=== PATIENT | female | born 1980 | race Caucasian/White ===

== ENCOUNTER 2018-12-14 05:52 | Outpatient (CLI) | payer MEDICAID ==
[~2018-12-14] VITALS: Ht 170.2 cm; Wt 97.5 kg
[~2018-12-14 05:52] MED LIST: ACHD5005 PO; DICY10CA26 PO; LAMO200T14 PO; LANS30CA PO; METO10TA3 PO; MMT17NA NS; ONDA8TAB13 PO; SUMA100T2 PO; TPR100T PO
[2018-12-14] MEDS ORDERED: CETI10TA17 PO (13:45)
[2018-12-14] MEDS ORDERED: CARI3CAP PO (13:45)
[2018-12-14] MEDS ORDERED: VORT10TA PO (13:45)
[2018-12-14] MEDS ORDERED: PHEN100C4 PO (13:45)
[2018-12-14] MEDS ORDERED: LAMO200T3 PO (13:45)
[2018-12-14] MEDS ORDERED: LAMO25TA75 PO (13:45)
[2018-12-14] MEDS ORDERED: PROP40TA5 PO (13:45)
[2018-12-14] MEDS ORDERED: PANT40TA2 PO (13:45)
== END 2018-12-14 14:06 ==
LOC: PREOP 05:52
PROVIDERS: ATTEND Surgery
DX: Z01.818 Encounter for other preprocedural examination (principal); K21.9 Gastro-esophageal reflux disease without esophagitis; R11.2 Nausea with vomiting, unspecified

== ENCOUNTER 2018-12-20 09:46 | Day surgery (SDC) | payer MEDICAID ==
[~2018-12-20] VITALS: Ht 170.2 cm; Wt 124.7 kg
[2018-12-20] VITALS (7 sets, daily range): BP systolic 108–135; BP diastolic 61–72
[~2018-12-20 09:46] MED LIST changes: +CARI3CAP PO; +CETI10TA17 PO; +LACTATED RINGERS 1,000 ML IV ONE; +LAMO200T3 PO; +LAMO25TA75 PO; +PANT40TA2 PO; +PHEN100C4 PO; +PROP40TA5 PO; +VORT10TA PO
--- NOTE | 2018-12-20 09:58 | Progress Note-Pre Operative ---
Pre-Operative Progress Note H&P Reviewed The H&P was reviewed, patient examined and no changes noted. Time Seen by Provider: 09:55 Date H&P Reviewed: Dec 20, 2018 Time H&P Reviewed: 09:56 Pre-Operative Diagnosis: Chronic Gastritis BARTOLOME DRAPER DO Dec 20, 2018 09:58
[2018-12-20] MEDS ORDERED: LACTATED RINGERS 1,000 ML IV STA (10:21)
[2018-12-20] MEDS ORDERED: HURRICAINE EXT TUBE (BENZOCAINE) XX PRN (10:30)
[2018-12-20] MEDS ORDERED: HURRICAINE EXT TUBE (BENZOCAINE) ONE (10:36)
[2018-12-20] MEDS ORDERED: MIDAZOLAM 2 MG/2 ML (VERSED) VIAL ONE (10:47)
[2018-12-20] MEDS ORDERED: PROPOFOL INJECTION 50 ML IV ONE (10:47)
--- NOTE | 2018-12-20 11:12 | Progress Note-Post Operative ---
Post-Operative Progess Note Surgeon (s)/Medication Technician (s) Surgeon BARTOLOME DRAPER DO Medication Technician: none Pre-Operative Diagnosis Chronic Gastritis Post-Operative Diagnosis Gastritis Hiatal Hernia Procedure & Operative Findings Date of Procedure 12/20/18 Procedure Performed/Findings EGD with bx Anesthesia Type IV sedation by THAI MASSEUR Estimated Blood Loss Estimated blood loss (mL): scant Specimens/Packing Specimens Removed antral bx body of stomach bx GE jxn bx BARTOLOME DRAPER DO Dec 20, 2018 11:12
--- NOTE | 2018-12-20 11:14 | Endoscopy Discharge Instruct ---
Endo Procedure/Findings Findings 1.: Gastritis 2.: Hiatal Hernia Discharge Instructions - Activity: You might feel a little sleepy until tomorrow. This is due to the medicine you received to relax you. Until tomorrow, you should: NOT drive a car, operate machinery or power tools. NOT drink any alcoholic beverages. NOT make any important decisions or sign importortant papers. Do not return to work until tomorrow, unless otherwise instructed. Resume previous activities tomorrow. Diet: Start by taking liquids. If you tolerate liquids, advance to solid food. make an appointment for one week 1.: EGD in 1 year Notify Physician - If you experience excessive bleeding, unusual abdominal pain, fever, or chest pain, contact your doctor immediately. BARTOLOME DRAPER DO Dec 20, 2018 11:14
--- NOTE | 2018-12-20 14:27 | Anesthesia-General Post-Op ---
MAC Patient Condition Mental Status/LOC: Same as Preop Cardiovascular: Satisfactory Nausea/Vomiting: Absent Respiratory: Satisfactory Pain: Controlled Complications: Absent Post Op Complications Complications None Follow Up Care/Instructions Patient Instructions None needed. Anesthesiology Discharge Order Discharge Order Patient is doing well, no complaints, stable vital signs, no apparent adverse anesthesia problems. No complications reported per nursing. AUGUSTO ROMAN CRNA Dec 20, 2018 14:27
--- NOTE | 2018-12-21 17:17 | OPERATIVE REPORT ---
DATE OF SERVICE: 12/20/2018 PREOPERATIVE DIAGNOSES: Chronic gastritis, nausea, vomiting. POSTOPERATIVE DIAGNOSES: Gastritis, hiatal hernia. PROCEDURE PERFORMED: Esophagogastroduodenoscopy with biopsy. SURGEON: Lemuel Hilliard DO. TAX SERVICES INTERN: None. ANESTHESIA: IV sedation by the SPINNER OPEN END. SPECIMEN: Biopsy from the antrum, biopsy of the body of the stomach and biopsy from the GE junction. BLOOD LOSS: Scant. FLUIDS: Per Anesthesia. POSTOPERATIVE CONDITION: Stable. INDICATION FOR PROCEDURE: The patient is a 38-year-old female who has been having some chronic gastritis as well as nausea, vomiting and needed a workup. FINDINGS: The patient had gastritis, hiatal hernia, possibly esophagitis and had biopsies performed. PROCEDURE NOTE: After informed consent was obtained, the patient was brought to the endoscopy suite, placed in the bed in left lateral decubitus position. She was administered IV sedation by the SPINNER OPEN END who then monitored her vitals the entire time, heart rate, blood pressure and pulse ox. A scope was inserted down the mouth through the esophagus and into the stomach, pushed towards the antrum, looked like some mild gastritis, took a picture of this, pushed into the duodenum, duodenum looked okay, took a picture and then pulled the scope back and did a biopsy of the antrum and then pulled the scope into the body of stomach, did another biopsy. I retroflexed the scope, saw hiatal hernia, took a picture of this and then pulled the scope up into the esophagus and the GE junction, looked like there was some creeping up of the Z line, took a picture of this and then did a biopsy of the GE junction. Suctioned the excess air out of the stomach and then pulled the scope up the esophagus and out the mouth. The patient tolerated the procedure. She was recovered in endoscopy suite. Job ID: [id number] DocumentID: [id number] Dictated Date: 12/21/2018 09:58:13 Chain Dyer Date: 12/21/2018 17:16:40 Dictated By: LEMUEL HILLIARD DO
== END 2018-12-20 12:15 | disposition home or self-care (01) ==
LOC: ENDO 09:46
PROVIDERS: ATTEND Surgery
DX: K29.50 Unspecified chronic gastritis without bleeding (principal); K44.9 Diaphragmatic hernia without obstruction or gangrene; F32.9 Major depressive disorder, single episode, unspecified; F41.9 Anxiety disorder, unspecified; F43.10 Post-traumatic stress disorder, unspecified; E66.01 Morbid (severe) obesity due to excess calories; Z68.41 Body mass index [BMI] 40.0-44.9, adult; Z90.89 Acquired absence of other organs; Z90.710 Acquired absence of both cervix and uterus; Z88.8 Allergy status to other drugs, medicaments and biological substances; Z90.49 Acquired absence of other specified parts of digestive tract; Z88.6 Allergy status to analgesic agent; Z79.84 Long term (current) use of oral hypoglycemic drugs

== ENCOUNTER 2019-07-09 21:49 | Emergency (ER) | payer MEDICAID ==
[~2019-07-09] VITALS: Ht 170 cm; Wt 117.0 kg
[~2019-07-09 21:49] MED LIST changes: -LACTATED RINGERS 1,000 ML IV ONE
--- OUTSIDE RECORDS SUMMARY | 2019-07-09 22:00 | XMS REPORT | Continuity of Care Document ---
Author Organization Unknown Address Unknown Phone Unavailable Allergies Active Description Code Type Severity Reaction Onset Reported/Identified Relationship to Patient Clinical Status Yes NO NAME AVAILABLE 01146 DRUG N/A N/A Yes Mobic 15 mg tablet Drug Allerg y N/A N/A 09/21/2012 Yes aspirin [id number] Drug Allergy Unknown N/A 07/30/2013 Yes METFORMIN 92475 DRUG INGREDI High Hives 09/01/2017 09/01/2017 Yes ONDANSETRON 83063 DRUG INGREDI N/A NTV 09/01/2017 09/01/2017 [address] CONTI INGREDI Low Rash 09/01/2017 09/01/2017 Yes aspirin [id number] Drug Allergy Severe HAS CONVULSIONS 12/14/2018 Yes ondansetron [id number] Drug Aller gy Mild HIVES 12/14/2018 Medications Medication Packaging Start Date St op Date Route Dosage Sig TRAZODONE HCL 100 MG PO TABS 09/01/2017 Oral 100 BEDTIME PRN OLANZAPINE 10 MG PO TBDP 09/01/2017 Oral 10 2 TI MES DAILY PRN OLANZAPINE 10 MG PO TABS 09/01/2017 Oral 10 2 TI MES DAILY PRN QUETIAPINE FUMARATE 25 MG PO TABS 09/01/2017 Oral 25 4 TIMES DAILY PRN MAGNESIUM HYDROXIDE 400 MG/5ML PO SUSP 09/01/2017 Oral 30 DAILY PRN ALUM T MAG HYDROXIDE-SIMETH 200-200-20 MG/5ML PO SUSP 09/01/2017 Oral 30 4 TIMES DAILY PRN ACETAMINOPHEN 325 MG PO TABS 09/01/2017 Oral 650 EVERY 6 HOURS PRN PROMETHAZINE HCL 25 MG PO TABS 09/01/2017 Oral 25 EVERY 6 HOURS PRN IBUPROFEN 400 MG PO TABS 09/01/2017 Oral 800 3 TI MES DAILY WITH MEALS POLYETHYLENE GLYCOL 3350 PO PACK 09/01/2017 Oral 17 DAILY ESTRADIOL 1 MG PO TABS 09/01/2017 Oral 2 GALILEA Y LAMOTRIGINE 100 MG PO TABS 09/01/2017 Oral 200 2 TIMES DAILY VENLAFAXINE HCL ER 75 MG PO CP24 09/01/2017 Oral 75 DAILY WITH BREAKFAST PROPRANOLOL HCL 40 MG PO TABS 09/01/2017 Oral 40 2 TIMES DAILY PHENYTOIN SODIUM EXTENDED 100 MG PO CAPS 09/01/2017 Oral 200 2 TIMES DAILY PANTOPRAZOLE SODIUM 40 MG PO TBEC 09/01/2017 Oral 40 EVERY MORNING BEFORE BREAKFAST GLUCAGON HCL (DIAGNOSTIC) 1 MG IJ SOLR 09/01/2017 Intramuscular 1 PRN GLUCOSE 40 % PO GEL 09/01/2017 Oral 15 PRN DEXTROSE 50 % IV SOLN 09/01/2017 Intravenous 50 PRN LIRAGLUTIDE 18 MG/3ML SC SOPN 09/01/2017 Subcutaneous 0.6 DAILY SITAGLIPTIN PHOSPHATE 50 MG PO TABS 09/01/2017 Oral 100 DAILY WITH BREAKFAST INSULIN ASPART 100 UNIT/ML SC SOPN 09/01/2017 Subcutaneous 4 TIMES DAILY BEFORE MEALS & NIGHTLY TRAZODONE HCL 100 MG PO TABS 09/01/2017 Oral 100 BEDTIME SITAGLIPTIN PHOSPHATE 50 MG PO TABS 09/02/2017 Oral 100 DAILY WITH BREAKFAST INSULIN DETEMIR 100 UNIT/ML SC SOPN 09/02/2017 Subcutaneous 10 EVERY MORNING IBUPROFEN 400 MG PO TABS 09/02/2017 Oral 800 EVER Y 6 HOURS PRN DAPAGLIFLOZIN PROPANEDIOL 5 MG PO SPLIT TA BLET 09/02/2017 Oral 5 DAILY INSULIN ASPART 100 UNIT/ML SC SOPN 09/02/2017 Subcutaneous 3 3 TIMES DAILY WITH MEALS INSULIN DETEMIR 100 UNIT/ML SC SOPN 09/03/2017 Subcutaneous 5 ONCE INSULIN ASPART 100 UNIT/ML SC SOPN 09/03/2017 Subcutaneous 5 3 TIMES DAILY WITH MEALS INSULIN DETEMIR 100 UNIT/ML SC SOPN 09/04/2017 Subcutaneous 15 EVERY MORNING Problems Date Dx Coded Attending Type Code Diagnosis Diagnosed By 08/25/2012 296.80 BIP OLAR DISORDER NOS 08/25/2012 724.2 lowe r back pain 08/25/2012 781.0 invo luntary movements [Sx] 08/25/2012 296.80 BIP OLAR DISORDER NOS 08/25/2012 724.2 lowe r back pain 08/25/2012 781.0 invo luntary movements [Sx] 08/25/2012 RAHUL MARIE MD 296.80 BIPOLAR DISORDER NOS 08/25/2012 RAHUL MARIE MD 724.2 lower back pain 08/25/2012 RAHUL MARIE MD 781.0 involuntary movements [Sx] 08/26/2012 268.9 GERMÁN MIN D DEFICIENCY 08/26/2012 272.1 HYPERTRIGLYCERIDEMIA 08/26/2012 268.9 GERMÁN MIN D DEFICIENCY 08/26/2012 272.1 HYPERTRIGLYCERIDEMIA 08/26/2012 RAHUL MARIE MD 268.9 VITAMIN D DEFICIENCY 08/26/2012 RAHUL MARIE MD 272.1 HYPERTRIGLYCERIDEMIA 09/21/2012 789.00 ABD OMINAL PAIN UNSPECIFIED SITE 09/21/2012 RAHUL MARIE MD 789.00 ABDOMINAL PAIN UNSPECIFIED SITE 10/29/2012 RAHUL MARIE MD 719.47 PAIN IN JOINT INVOLVING ANKLE AND FOOT 07/30/2013 SUGEY RICKS Ot 787.02 NAUSEA ALONE 07/30/2013 SUGEY RICKS Ot 789.00 ABDOMINAL PAIN, UNSPECIFIED SITE 09/04/2017 JOE DUARTE V [id number] Suicidal 09/04/2017 JOE DUARTE V E11.65 Type 2 diabetes mellitus with hyperglycemia (HCC) 09/04/2017 JOE DUARTE P F33.2 Major depressive disorder, recurrent severe without psychotic features (HCC) 09/04/2017 JOE DUARTE F E11.42 Type 2 diabetes mellitus with diabetic polyneuropathy (HCC) 09/04/2017 JOE DUARTE F E11.65 Type 2 diabetes mellitus with hyperglycemia (HCC) 09/04/2017 JOE DUARTE F E66.01 Morbid (severe) obesity due to excess calories (HCC) 09/04/2017 JOE DUARTE F E78.5 Hyperlipidemia, unspecified 09/04/2017 JOE DUARTE F F33.2 Major depressive disorder, recurrent severe without psychotic features (HCC) 09/04/2017 JOE DUARTE F F41.1 Generalized anxiety disorder 09/04/2017 JOE DUARTE F F43.10 Post-traumatic stress disorder, unspecified 09/04/2017 JOE DUARTE F G40.90 9 Epilepsy, unspecified, not intractable, without status epilepticus (HCC) 09/04/2017 JOE DUARTE G43.90 9 Migraine, unspecified, not intractable, without status migrainosus 09/04/2017 JOE DUARTE G47.00 Insomnia, unspecified 09/04/2017 JOE DUARTE F G47.33 Obstructive sleep apnea (adult) (pediatric) 09/04/2017 JOE DUARTE F G89.29 Other chronic pain 09/04/2017 JOE DUARTE K21.9 Gastro-esophageal reflux disease without esophagitis 09/04/2017 JOE DUARTE N32.81 Overactive bladder 09/04/2017 JOE DUARTE F R45.85 1 Suicidal ideations 09/04/2017 JOE DUARTE Z68.42 Body mass index (BMI) 45.0-49.9, adult (HCC) 09/04/2017 JOE DUARET 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 09/04/2017 JOE DUARTE Z90.49 Acquired absence of other specified parts of digestive tract 09/04/2017 JOE DUARTE Z90.71 0 Acquired absence of both cervix and uterus 12/14/2018 BARTOLOME DRAPER DO Ot K21.9 GASTRO-ESOPHAGEAL REFLUX DISEASE WITHOUT 12/14/2018 FAWAD DRAPER DOIC B Ot R11.2 NAUSEA WITH VOMITING, UNSPECIFIED 12/14/2018 BARTOLOME DRAPER DO B Ot Z01.8 18 ENCOUNTER FOR OTHER PREPROCEDURAL EXAMIN 12/20/2018 BARTOLOME DRAPER DO B Ot E66.0 1 MORBID (SEVERE) OBESITY DUE TO EXCESS CA 12/20/2018 BARTOLOME DRAPER DO B Ot F32.9 MAJOR DEPRESSIVE DISORDER, SINGLE EPISOD 12/20/2018 BARTOLOME DRAPER DO B Ot F41.9 ANXIETY DISORDER, UNSPECIFIED 12/20/2018 BARTOLOME DRAPER DO Ot F43.1 0 POST-TRAUMATIC STRESS DISORDER, UNSPECIF 12/20/2018 BARTOLOME DRAPER DO B Ot K29.5 0 UNSPECIFIED CHRONIC GASTRITIS WITHOUT BL 12/20/2018 BARTOLOME DRAPER DO Ot K44.9 DIAPHRAGMATIC HERNIA WITHOUT OBSTRUCTION 12/20/2018 DELMAN DO, BARTOLOME B Ot Z68.4 1 BODY MASS INDEX (BMI) 40.0-44.9, ADULT 12/20/2018 BARTOLOME DRAPER DO B Ot Z79.8 4 SHELTER (CURRENT) USE OF ORAL HYPOGLYC 12/20/2018 BARTOLOME DRAPER DO B Ot Z88.6 ALLERGY STATUS TO ANALGESIC AGENT STATUS 12/20/2018 BARTOLOME DRAPER DO B Ot Z88.8 ALLERGY STATUS TO OTH DRUG/MEDS/BIOL SUB 12/20/2018 BARTOLOME DRAPER DO B Ot Z90.4 9 ACQUIRED ABSENCE OF OTHER SPECIFIED PART 12/20/2018 BARTOLOME DRAPER DO B Ot Z90.7 10 ACQUIRED ABSENCE OF BOTH CERVIX AND UTER 12/20/2018 BARTOLOME DRAPER DO B Ot Z90.8 9 ACQUIRED ABSENCE OF OTHER ORGANS 12/24/2018 BARTOLOME DRAPER DO B Ot E66.0 1 MORBID (SEVERE) OBESITY DUE TO EXCESS CA 12/24/2018 BARTOLOME DRAPER DO B Ot F32.9 MAJOR DEPRESSIVE DISORDER, SINGLE EPISOD 12/24/2018 BARTOLOME DRAPER DO B Ot F41.9 ANXIETY DISORDER, UNSPECIFIED 12/24/2018 BARTOLOME DRAPER DO B Ot F43.1 0 POST-TRAUMATIC STRESS DISORDER, UNSPECIF 12/24/2018 BARTOLOME DRAPER DO B Ot K29.5 0 UNSPECIFIED CHRONIC GASTRITIS WITHOUT BL 12/24/2018 FAWAD DRAPER DOIC B Ot K44.9 DIAPHRAGMATIC HERNIA WITHOUT OBSTRUCTION 12/24/2018 BARTOLOME DRAPER DO B Ot Z68.4 1 BODY MASS INDEX (BMI) 40.0-44.9, ADULT 12/24/2018 BARTOLOME DRAPER DO B Ot Z79.8 4 SHELTER (CURRENT) USE OF ORAL HYPOGLYC 12/24/2018 BARTOLOME DRAPER DO B Ot Z88.6 ALLERGY STATUS TO ANALGESIC AGENT STATUS 12/24/2018 BARTOLOME DRAPER DO B Ot Z88.8 ALLERGY STATUS TO OTH DRUG/MEDS/BIOL SUB 12/24/2018 FAWAD DRAPER DOIC B Ot Z90.4 9 ACQUIRED ABSENCE OF OTHER SPECIFIED PART 12/24/2018 BARTOLOME DRAPER DO B Ot Z90.7 10 ACQUIRED ABSENCE OF BOTH CERVIX AND UTER 12/24/2018 BARTOLOME DRAPER DO B Ot Z90.8 9 ACQUIRED ABSENCE OF OTHER ORGANS Procedures Code Description [place] [address] ORIANA AGUILA VENIPUNCTURE 08/26/2012 35901 URIN E DRUG SCREEN (IN-HOUSE) 08/26/2012 83609 A1C (IN-HOUSE) 08/26/2012 23548 CBC 08/26/2012 47246 GERMÁN MIN D 25-HYDROXY (D2,D3, TOTAL) 08/26/2012 70396 LITHIUM 08/26/2012 58384 VIT B 12 08/26/2012 15811 TSH 08/26/2012 05499 LIPI D PANEL 08/26/2012 87319 CMP 08/26/2012 1563254 GF R CALC (RESULT ONLY) 08/26/2012 KATERINE BISHOP 08/29/2012 Results Test Result Range [facility] - 12/30/16 10:41 Glucose, Serum 140 mg/dL 65-99 BUN 14 mg/dL 6-20 Creatinine, Serum 0.61 mg/dL 0.57-1.00 eGFR If NonAfricn Am 116 mL/min/1.73 >59 eGFR If Africn Am 134 mL/min/1.73 >5 9 BUN/Creatinine Ratio 23 9-23 Sodium, Serum 140 mmol/L 134-144 Potassium, Serum 4.3 mmol/L 3.5-5.2 Chloride, Serum 98 mmol/L 96-106 Carbon Dioxide, Total 24 mmol/L 18-29 Calcium, Serum 9.4 mg/dL 8.7-10.2 Protein, Total, Serum 7.1 g/dL 6.0-8.5 Albumin, Serum 4.2 g/dL 3.5-5.5 Globulin, Total 2.9 g/dL 1.5-4.5 A/G Ratio 1.4 1.2-2.2 Bilirubin, Total 0.3 mg/dL 0.0-1.2 Alkaline Phosphatase, S 128 IU/L 39-117 AST (SGOT) 32 IU/L 0-40 ALT (SGPT) 26 IU/L 0-32 DILANTIN - 01/16/17 14:00 PHENYTOIN 7.6 mg/L 10.0-20.0 DILANTIN - 02/02/17 10:55 Phenytoin (Dilantin), Serum 5.9 ug/mL 10 .0-20.0 BASIC METABOLIC PANEL - 09/01/17 15:40 ANION GAP 7 BUN BLOOD 15 mg/dL 6-20 CALCIUM 9.8 mg/dL 8.7-10.5 CHLORIDE 105 mmol/L 99-111 CO2 28 mmol/L 20-36 CREATININE 0.67 mg/dL 0.40-1.10 EGFR > mL/min >59 GLUCOSE 178 mg/dL 74-106 POTASSIUM 4.5 mmol/L 3.6-4.9 SODIUM 140 mmol/L 136-145 HEMOGLOBIN A1C - 09/01/17 15:40 HEMOGLOBIN A1C 6.9 % <5.7 PERFORM POINT OF CARE GLUCOSE - 09/01/17 17:53 BEDSIDE GLUCOSE 171 mg/dL 74-106 PERFORM POINT OF CARE GLUCOSE - 09/01/17 20:49 BEDSIDE GLUCOSE 168 mg/dL 74-106 PERFORM POINT OF CARE GLUCOSE - 09/02/17 08:19 BEDSIDE GLUCOSE 177 mg/dL 74-106 PERFORM POINT OF CARE GLUCOSE - 09/02/17 12:22 BEDSIDE GLUCOSE 164 mg/dL 74-106 PERFORM POINT OF CARE GLUCOSE - 09/02/17 17:58 BEDSIDE GLUCOSE 155 mg/dL 74-106 PERFORM POINT OF CARE GLUCOSE - 09/02/17 20:53 BEDSIDE GLUCOSE 162 mg/dL 74-106 PERFORM POINT OF CARE GLUCOSE - 09/03/17 07:59 BEDSIDE GLUCOSE 147 mg/dL 74-106 PERFORM POINT OF CARE GLUCOSE - 09/03/17 12:18 BEDSIDE GLUCOSE 119 mg/dL 74-106 PERFORM POINT OF CARE GLUCOSE - 09/03/17 17:38 BEDSIDE GLUCOSE 170 mg/dL 74-106 PERFORM POINT OF CARE GLUCOSE - 09/03/17 20:50 BEDSIDE GLUCOSE 128 mg/dL 74-106 PERFORM POINT OF CARE GLUCOSE - 09/04/17 07:57 BEDSIDE GLUCOSE 148 mg/dL 74-106 CULTURE, URINE - 10/01/17 10:12 CULTURE, URINE, ROUTINE SEE NOTE NRG LIPID PANEL - 03/15/18 11:54 CHOLESTEROL, TOTAL 268 mg/dL <200 HDL CHOLESTEROL 44 mg/dL >50 TRIGLYCERIDES 353 mg/dL <150 LDL-CHOLESTEROL 164 mg/dL (calc) NRG CHOL/HDLC RATIO 6.1 (calc) <5.0 NON HDL CHOLESTEROL 224 mg/dL (calc) <13 0 VITAMIN B12/FOLATE, SERUM PANEL - 11:05 VITAMIN B12 380 pg/mL 200-1100 FOLATE, SERUM 7.6 ng/mL NRG LAMOTRIGINE (LAMICTAL), SERUM - 06/02/18 11:05 LAMOTRIGINE 1.0 mcg/mL 4.0-18.0 DILANTIN - 08/10/18 12:15 PHENYTOIN 18.2 mg/L 10.0-20.0 LAMOTRIGINE (LAMICTAL), SERUM - 08/10/18 12:15 LAMOTRIGINE 3.4 mcg/mL 4.0-18.0 CMP - 09/28/18 14:22 GLUCOSE 119 mg/dL 65-139 UREA NITROGEN (BUN) 15 mg/dL 7-25 CREATININE 0.66 mg/dL 0.50-1.10 eGFR NON-AFR. COLOMBIAN 111 mL/min/1.73m2 > OR = 60 eGFR 129 mL/min/1.73m2 > OR = 60 BUN/CREATININE RATIO NOT APPLICABLE (calc) 6-22 SODIUM 142 mmol/L 135-146 POTASSIUM 4.4 mmol/L 3.5-5.3 CHLORIDE 101 mmol/L 98-110 CARBON DIOXIDE 29 mmol/L 20-32 CALCIUM 9.8 mg/dL 8.6-10.2 PROTEIN, TOTAL 7.2 g/dL 6.1-8.1 ALBUMIN 4.3 g/dL 3.6-5.1 GLOBULIN 2.9 g/dL (calc) 1.9-3.7 ALBUMIN/GLOBULIN RATIO 1.5 (calc) 1.0-2. 5 BILIRUBIN, TOTAL 0.5 mg/dL 0.2-1.2 ALKALINE PHOSPHATASE 189 U/L 33-115 AST 22 U/L 10-30 ALT 30 U/L 6-29 DILANTIN - 09/28/18 14:22 PHENYTOIN 11.1 mg/L 10.0-20.0 LAMOTRIGINE (LAMICTAL), SERUM - 09/28/18 14:22 LAMOTRIGINE 3.1 mcg/mL 4.0-18.0 CULTURE, ANAEROBIC AND AEROBIC - 9 17:46 CULTURE, ANAEROBIC BACTERIA W/GRAM STAIN SEE NOTE NRG CULTURE, AEROBIC BACTERIA SEE NOTE NRG DILANTIN - 12/23/18 09:31 PHENYTOIN 12.1 mg/L 10.0-20.0 LAMOTRIGINE (LAMICTAL), SERUM - 12/23/18 09:31 LAMOTRIGINE 2.5 mcg/mL 4.0-18.0 CBC - 03/21/19 16:05 WHITE BLOOD CELL COUNT 9.5 Thousand/uL 3 .8-10.8 RED BLOOD CELL COUNT 4.13 Million/uL 3.8 0-5.10 HEMOGLOBIN 14.1 g/dL 11.7-15.5 HEMATOCRIT 38.8 % 35.0-45.0 MCV 93.9 fL 80.0-100.0 MCH 34.1 pg 27.0-33.0 MCHC 36.3 g/dL 32.0-36.0 RDW 12.0 % 11.0-15.0 PLATELET COUNT 286 Thousand/uL 140-400 MPV 10.0 fL 7.5-12.5 ABSOLUTE NEUTROPHILS 6166 cells/uL 1500- 7800 ABSOLUTE LYMPHOCYTES 2556 cells/uL 850-3 900 ABSOLUTE MONOCYTES 599 cells/uL 200-950 ABSOLUTE EOSINOPHILS 162 cells/uL 15-500 ABSOLUTE BASOPHILS 19 cells/uL 0-200 NEUTROPHILS 64.9 % NRG LYMPHOCYTES 26.9 % NRG MONOCYTES 6.3 % NRG EOSINOPHILS 1.7 % NRG BASOPHILS 0.2 % NRG ESR/SED RATE - 03/21/19 16:05 SED RATE BY MODIFIED WESTERGREN 51 mm/h < OR = 20 DILANTIN - 03/21/19 16:05 PHENYTOIN 12.2 mg/L 10.0-20.0 LAMOTRIGINE (LAMICTAL), SERUM - 03/21/19 16:06 LAMOTRIGINE 2.2 mcg/mL 4.0-18.0 DILANTIN - 06/23/19 17:10 PHENYTOIN 7.8 mg/L 10.0-20.0 LAMOTRIGINE (LAMICTAL), SERUM - 06/23/19 17:13 LAMOTRIGINE 3.4 mcg/mL 4.0-18.0 Encounters ACCT No. Visit Date/Time Discharge Status Pt. Type Provider Facility Loc./Unit Complaint [id number] 06/23/2019 15:40:00 06/23/2019 23:59:5 9 [id number] 06/23/2019 15:40:00 Document Registration [id number] 03/21/2019 14:20:00 Document Registration [id number] 12/23/2018 09:30:00 Document Registration [id number] 09/28/2018 17:46:00 Document Registration [id number] 09/28/2018 13:20:00 Document Registration [id number] 08/10/2018 11:20:00 Document Registration [id number] 06/02/2018 11:45:00 Document Registration [id number] 03/15/2018 11:40:00 Document Registration [id number] 10/01/2017 09:40:00 Document Registration [id number] 02/02/2017 10:40:00 Document Registration [id number] 01/16/2017 14:20:00 Document Registration [id number] 12/30/2016 09:20:00 Document Registration [id number] 10/29/2012 10:19:00 10/29/2012 23:59: 59 CLS Outpatient RAHUL MARIE MD [id number] 09/21/2012 16:18:00 Document Registration [id number] 08/26/2012 09:40:00 Document Registration [id number] 09/01/2017 10:46:00 8 11:28:00 DIS Inpatient [facility] [place] [facility]E [facility] [id number] 12/20/2018 09:46:00 12:15:00 DIS Outpatient BONNY GANDHI BARTOLOME B [facility] ENDO GERD/N V [id number] 12/14/2018 05:52:00 019 14:06:00 DIS Outpatient BONNY DO BARTOLOME B [facility] PREOP EGD [id number] 06/15/2018 13:43:00 019 23:59:59 CLS Preadmit RASHAAD FOLEY, ANASTASIYA Bess [facility] REHAB CERVICAL RADICULOPATHY [id number] 07/30/2013 13:24:00 014 17:10:00 DIS Emergency SUGEY RICKS [facility] ER OVERALL BODY PAIN [id number] 11/22/2012 11:33:00 013 23:59:59 CLS Outpatient [id number] 05/20/2018 13:43:00 Document Registration
[2019-07-09] MEDS ORDERED: CEPHALEXIN 250 MG (KEFLEX) CAP PO ONE ×2 (22:08→22:15)
[2019-07-09] MEDS ORDERED: CEPH500T PO (22:09)
--- NOTE | 2019-07-09 22:09 | ED Integumentary General ---
General Chief Complaint: Fever-Adult/Adol Stated Complaint: FEVER Nursing Triage Note: Pt presents with a fever and right side facial swelling Source: patient Exam Limitations: no limitations History of Present Illness Date Seen by Provider: Jul 09, 2019 Time Seen by Provider: 22:04 Initial Comments onset of facial swelling and redness beginning yesterday, significantly worse today. Left side of face. similar episode a few weeks ago on the right side of her face. Denies dental pain. Saw a dentist last week and told she did not have a dental problem. Allergies and Home Medications Allergies Coded Allergies: aspirin (Unverified Allergy, Severe, HAS CONVULSIONS, 12/14/18) ondansetron (Verified Allergy, Mild, HIVES, 12/14/18) Home Medications Cariprazine Hydrochloride 3 Mg Capsule, 3 MG PO DAILY, (Reported) Cetirizine HCl 10 Mg Tablet, 10 MG PO DAILY, (Reported) Lamotrigine 200 Mg Tab.er.24, 200 MG PO BID, (Reported) Lamotrigine 25 Mg Tablet, 25 MG PO DAILY, (Reported) Pantoprazole Sodium 40 Mg Tablet.dr, 40 MG PO DAILY, (Reported) Phenytoin Sodium Extended 100 Mg Capsule, 200 MG PO TID, (Reported) Propranolol HCl 40 Mg Tablet, 40 MG PO BID, (Reported) Vortioxetine Hydrobromide 10 Mg Tablet, 10 MG PO DAILY, (Reported) Patient Home Medication List Home Medication List Reviewed: Yes Review of Systems Review of Systems Constitutional: see HPI, fever; No malaise, No weakness EENTM: mouth pain, mouth swelling; No ear discharge, No hearing loss, No ear pain, No blurred vision, No double vision, No eye pain, No tearing, No dental problems, No hoarseness, No epistaxis, No nose congestion, No nose pain, No throat pain, No throat swelling Respiratory: No cough, No short of breath Cardiovascular: No chest pain, No palpitations Gastrointestinal: No abdominal pain, No loss of appetite, No nausea, No vomiting Skin: see HPI, change in color, rash (facial) Past Xuvomrg-Wgkltt-Xtnwjk Hx Past Med/Social Hx: Reviewed Nursing Past Med/Soc Hx Patient Social History Alcohol Use: Denies Use Recreational Drug Use: No Smoking Status: Never a Smoker 2nd Hand Smoke Exposure: No Recent Foreign Travel: No Contact w/Someone Who Travel: No Recent Infectious Disease Expo: No Recent Hopitalizations: No Physical Abuse: No Sexual Abuse: No Immunizations Up To Date Date of Influenza Vaccine: Jan 18, 2018 Seasonal Allergies Seasonal Allergies: Yes Past Medical History Surgeries: Yes Appendectomy, Gallbladder, Hysterectomy Respiratory: No Cardiac: No Neurological: Yes (09/2018 LAST SEIZURE) Headaches /Migraines, Seizure Disorder RUBY ON RAILS ENGINEER History: Hysterectomy Sexually Transmitted Disease: No HIV/AIDS: No Genitourinary: No Gastrointestinal: Yes (N/V) Gastroesophageal Reflux Musculoskeletal: Yes (SLIPPED DISC) Back Injury Endocrine: No HEENT: No Loss of Vision: Denies Hearing Impairment: Denies Cancer: No Psychosocial: Yes Anxiety, Depression Integumentary: No Blood Disorders: No Adverse Reaction/Blood Tranf: No (N/A) Physical Exam Vital Signs Vital Signs - First Documented 07/09/19 21:55 Temp 39.0 Pulse 125 Resp 18 B/P (MAP) 132/73 (92) Pulse Ox 95 O2 Delivery Room Air Capillary Refill : Less Than 3 Seconds General Appearance: WD/WN, no apparent distress HEENT: PERRL/EOMI, TMs normal, pharynx normal; No pharyngeal erythema, No tonsillar exudate Neck: non-tender, supple, normal inspection; No lymphadenopathy (R), No lymphadenopathy (L) Skin: other (moderate induration without abscess formation left maxillary region w intense erythema. Non-fluctuant or pointing. Normal oral exam without dental abscess. ) Progress/Results/Core Measures Results/Orders Vital Signs/I&O 07/09/19 21:55 Temp 39.0 Pulse 125 Resp 18 B/P (MAP) 132/73 (92) Pulse Ox 95 O2 Delivery Room Air Blood Pressure Mean: 92 Departure Impression Primary Impression: Facial cellulitis Disposition: 01 HOME, SELF-CARE Condition: Stable Departure-Patient Inst. Decision time for Depature: 22:09 Referrals: [facility] (PCP) Primary Care Physician KATERINE GRANADO APRN (Family) Primary Care Physician Patient Instructions: Cellulitis (Skin Infection), Adult (DC) Scripts Prednisone (Prednisone) 20 Mg Tab 40 MG PO DAILY, #10 TAB 0 Refills Prov: ROVENSTINE,LUCERO L DO 07/09/19 Cephalexin (Cephalexin) 500 Mg Tablet 500 MG PO QID, #40 TAB 0 Refills Prov: ROVENSTINE,LUCERO L DO 07/09/19 LUCERO CALVERT DO Jul 09, 2019 22:09
[2019-07-09] MEDS ORDERED: PRD20T PO (22:10)
[2019-07-09 22:16] VITALS: BP 132/73
== END 2019-07-09 22:17 | disposition home or self-care (01) ==
LOC: EDUNIT# 21:49 → ER FS 21:52
DX: L03.211 Cellulitis of face (principal)
CPT/HCPCS: 99283

== ENCOUNTER → 2021-04-10 | Outpatient (CLI) | payer MEDICAID ==
[~2021-04-10] MED LIST changes: +CEPH500T PO; +PRD20T PO
--- NOTE | 2021-04-10 11:06 | Diagnostic Imaging Report ---
INDICATION: Left shoulder pain. TIME OF EXAM: 10:42 a.m. FINDINGS: Multiple views of the left shoulder were obtained. Glenohumeral and acromioclavicular alignment is normal. Acromiohumeral space is normal. 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 No fracture is seen. IMPRESSION: No acute abnormality is detected. Dictated by: Dictated on workstation # [id number]
== END ==
LOC: RAD FS 10:25
PROVIDERS: ATTEND Nurse Practitioner
DX: M25.512 Pain in left shoulder (principal)
CPT/HCPCS: 73030

== ENCOUNTER 2021-10-09 05:31 | Outpatient (CLI) | payer MEDICAID ==
[~2021-10-09] VITALS: Ht 170.2 cm; Wt 127.3 kg
[2021-10-09] MEDS ORDERED: GABA300C PO (12:49)
[2021-10-09] MEDS ORDERED: PARO37.517 PO (12:49)
[2021-10-09] MEDS ORDERED: DIVA500T PO (12:49)
[2021-10-09] MEDS ORDERED: ROSU5TAB13 PO (12:49)
[2021-10-09] MEDS ORDERED: PROM25TA14 PO (12:49)
[2021-10-09] MEDS ORDERED: CANA100T PO (12:49)
[2021-10-09] MEDS ORDERED: PHEN100C11 PO (12:49)
[2021-10-09] MEDS ORDERED: AMIT75TA2 PO (12:49)
== END 2021-10-09 13:06 | disposition home or self-care (01) ==
LOC: PREOP 05:31
PROVIDERS: ATTEND Urology
DX: Z01.818 Encounter for other preprocedural examination (principal)

== ENCOUNTER 2021-10-16 06:23 | Day surgery (SDC) | payer MEDICAID ==
[2021-10-16] VITALS (11 sets, daily range): BP systolic 100–128; BP diastolic 54–89
[~2021-10-16] VITALS: Ht 170 cm; Wt 127.3 kg
[~2021-10-16 06:23] MED LIST changes: +AMIT75TA2 PO; +CANA100T PO; +DIVA500T PO; +GABA300C PO; +PARO37.517 PO; +PHEN100C11 PO; +PROM25TA14 PO; +ROSU5TAB13 PO
[2021-10-16] MEDS ORDERED: cefTRIAXone 1 GM PRE-MIX 50 ML IV ONE (06:30)
[2021-10-16] MEDS: LACTATED RINGERS 1,000 ML IV PRN ×2 (07:00→09:13)
[2021-10-16] MEDS ORDERED: SEVOFLURANE (ULTANE) 15 ML INHAL SOLN ONE ×2 (07:22→08:27)
[2021-10-16] MEDS ORDERED: proPOfol 200 MG/20 ML (DIPRIVAN) VIAL IV ONE (07:22)
[2021-10-16] MEDS ORDERED: ONDANSETRON 4 MG/2 ML (SDV) Z0FRAN ONE (07:22)
[2021-10-16] MEDS ORDERED: LIDOCAINE PF 2% 5 ML (XYLOCAINE) VIAL ONE (07:22)
[2021-10-16] MEDS ORDERED: fentaNYL INJ 100 MCG/2 ML AMP ONE (07:22)
[2021-10-16] MEDS ORDERED: MIDAZOLAM 2 MG/2 ML (VERSED) VIAL ONE (07:23)
[2021-10-16] MEDS ORDERED: LIDOCAINE/EPI 1%-1:100,000 (XYLOCAINE) 20ML ONE (07:24)
[2021-10-16] MEDS ORDERED: ESTRADIOL VAGINAL CREAM 42.5 GM (ESTRACE) VG ONE (07:25)
--- NOTE | 2021-10-16 07:27 | Progress Note-Pre Operative ---
Pre-Operative Progress Note H&P Reviewed The H&P was reviewed, patient examined and no changes noted. Date Seen by Provider: Oct 16, 2021 Time Seen by Provider: 07:27 Date H&P Reviewed: Oct 16, 2021 Time H&P Reviewed: 07:27 Pre-Operative Diagnosis: INCONTINENCE BRITTANY NIELSEN MD Oct 16, 2021 07:27
--- NOTE | 2021-10-16 07:33 | Progress Note-Post Operative ---
Post-Operative Progess Note Surgeon (s)/Chemistry Manager (s) Surgeon BRITTANY NIELSEN MD Chemistry Manager: NONE Pre-Operative Diagnosis INCONTINENCE Post-Operative Diagnosis SAME Procedure & Operative Findings Date of Procedure 10/16/21 Procedure Performed/Findings PVS AND CYSTOSCOPY Anesthesia Type GENERAL Estimated Blood Loss Estimated blood loss (mL): LESS THAN 50 cc Specimens/Packing Specimens Removed NONE TO PATH Packin GM ESTRACE VAG PACK BRITTANY NIELSEN MD Oct 16, 2021 07:33
[2021-10-16] MEDS ORDERED: MILK OF MAGNESIA 400 MG/5 ML 30 ML UDC PO PRN (07:45)
[2021-10-16] MEDS ORDERED: ROCURONIUM 50 MG/5 ML (ZEMURON) VIAL IV ONE (08:27)
[2021-10-16] MEDS ORDERED: GLYCOPYRROLATE 0.2 MG/ML (ROBINUL) 2 ML VIAL ONE (09:05)
[2021-10-16] MEDS ORDERED: NEOSTIGMINE (BLOXIVERZ ) 1 MG/1ML 10 ML VIAL ONE (09:05)
[2021-10-16] MEDS ORDERED: KETOROLAC 30 MG/ML VIAL ONE (09:06)
[2021-10-16] MEDS ORDERED: HYDROmorphone 2 MG/ML VIAL (DILAUDID) IV ONE (09:30)
[2021-10-16] MEDS ORDERED: PROMETHAZINE INJ 25 MG/ML (PHENERGAN) AMP IVP ONE (09:30)
[2021-10-16] MEDS: LACTATED RINGERS 1,000 ML IV SCH ×2 (10:33→16:38)
--- NOTE | 2021-10-16 10:49 | Anesthesia-General Post-Op ---
General Patient Condition Mental Status/LOC: Same as Preop Cardiovascular: Satisfactory Nausea/Vomiting: Absent Respiratory: Satisfactory Pain: Controlled Complications: Absent Post Op Complications Complications None Follow Up Care/Instructions Patient Instructions None needed. Anesthesia/Patient Condition Patient Condition Patient is doing well, no complaints, stable vital signs, no apparent adverse anesthesia problems. No complications reported per nursing. D/C home per [facility] [place] Criteria: Yes JENNIFER BROWN CRNA Oct 16, 2021 10:49
[2021-10-16] MEDS ORDERED: PATIENT MAY USE OWN MEDS, ALL MC SCH (11:00)
[2021-10-16] MEDS ORDERED: PHEN200C3 PO ×2 (14:30)
[2021-10-16] MEDS ORDERED: DIVA500T15 PO (14:30)
[2021-10-16] MEDS ORDERED: PHEN100C11 PO (14:30)
[2021-10-16] MEDS ORDERED: LIRA0.6P SQ (14:30)
[2021-10-16] MEDS ORDERED: CARI4.5C PO (14:30)
[2021-10-16] MEDS ORDERED: IBUP-2185 PO (14:30)
[2021-10-16] MEDS ORDERED: PROMETHAZINE 25 MG (PHENERGAN) TAB PO PRN (14:45)
[2021-10-16] MEDS ORDERED: NON-FORMULARY MEDICATION 1 EA EA (Ibuprofen 800 MG) PO PRN (14:45)
--- NOTE | 2021-10-16 16:07 | OPERATIVE REPORT ---
DATE OF SERVICE: 10/16/2021 PREOPERATIVE DIAGNOSIS: Incontinence. POSTOPERATIVE DIAGNOSES: Incontinence with cystocele. OPERATIONS PERFORMED: Anterior repair, pubovaginal sling and cystoscopy. SURGEON: Francesco Nielsen MD. ANESTHESIA: General. COMPLICATIONS: None. DESCRIPTION OF PROCEDURE: Under satisfactory general anesthesia, the patient in extended lithotomy position, the abdomen, genitalia, and thigh were prepped and draped in the usual sterile fashion using a separate vaginal prep. Catheter was inserted, draining the bladder. The anterior vaginal wall was infiltrated with 2% lidocaine with epinephrine. An incision was made vertically, dissected down off the underlying tissue. The fascia was approximated with several interrupted 2-0 Vicryl to give excellent support to the bladder. Then, I passed the Desara II pubovaginal sling on both sides using the described technique. The sling was sitting nicely under the mid urethra with no twisting or tension. I removed the [place] catheter and performed cystoscopy to confirm the integrity of the bladder, ureters and urethra with no foreign body and presence of the sling under the mid urethra. I left the bladder half full to perform a manual Valsalva maneuver after removing the cystoscope and it was negative. I reinserted the [place] catheter draining clear urine. The excess vaginal mucosa was excised sharply and then the mucosa was approximated with a running 2-0 Vicryl Rapide type suture. The urine was clear. Two grams Estrace vaginal pack was inserted. Estimated blood loss was less than 50 mL, none of which was replaced. Needle, sponge, and instrument counts correct x2. The patient tolerated the procedure and anesthesia well and was sent to recovery room in a stable condition. Job ID: [id number] DocumentID: [id number] Dictated Date: 10/16/2021 11:37:09 Bitumen Plant Operator Date: 10/16/2021 16:06:40 Dictated By: FRANCESCO NIELSEN MD
[2021-10-16] MEDS ORDERED: IBUPROFEN 800 MG (MOTRIN) TAB PO PRN (17:00)
[2021-10-16] MEDS: INVOKANA 100 MG PO SCH (17:46)
[2021-10-16] MEDS ORDERED: AMITRIPTYLINE 75 MG TABLET PO SCH (21:00)
[2021-10-16] MEDS ORDERED: PHENYTOIN 100 MG (DILANTIN) CAP PO SCH (21:00)
[2021-10-16] MEDS ORDERED: PHENYTOIN PO SCH (21:00)
[2021-10-16] MEDS ORDERED: NON-FORMULARY MEDICATION 1 EA EA (Divalproex Sodium (Divalproex Sodium ER) 1,000 MG) PO SCH (21:00)
[2021-10-16] MEDS ORDERED: GABAPENTIN 300 MG (NEURONTIN) CAP PO SCH (21:00)
[2021-10-16] MEDS ORDERED: DIVALPROEX EXT RELEASE 250 MG (DEPAKOTE ER) TAB PO SCH (21:00)
[2021-10-16] MEDS ORDERED: VICTOZA 18 MG/3 ML SQ SCH (21:00)
[2021-10-16] MEDS: HYDROcodone/APAP 5 MG/325 MG (LORTAB) TAB PO PRN (21:12)
[2021-10-16] MEDS: PROPRANOLOL 40 MG TABLET PO SCH (21:18)
[2021-10-17 00:55] VITALS: BP 98/50
[2021-10-17 04:30] VITALS: BP 107/59
[2021-10-17] MEDS: LACTATED RINGERS 1,000 ML IV SCH ×2 (06:35→07:45)
[2021-10-17] MEDS ORDERED: INVOKANA 100 MG PO SCH (07:00)
[2021-10-17 08:30] VITALS: BP 117/56
[2021-10-17] MEDS: PROPRANOLOL 40 MG TABLET PO SCH (08:34)
[2021-10-17] MEDS: INVOKANA 100 MG PO SCH (08:37)
[2021-10-17] MEDS ORDERED: PAROXETINE 37.5 MG PO SCH (09:00)
[2021-10-17] MEDS ORDERED: VRAYLAR 4.5 MG PO SCH (09:00)
[2021-10-17] MEDS ORDERED: PHENYTOIN PO SCH (09:00)
[2021-10-17] MEDS ORDERED: PANTOPRAZOLE 40 MG (PROTONIX) TAB PO SCH (09:00)
[2021-10-17] MEDS ORDERED: ROSUVASTATIN 5 MG (CRESTOR) TABLET PO SCH (09:00)
[2021-10-17] MEDS: HYDROcodone/APAP 5 MG/325 MG (LORTAB) TAB PO PRN (10:18)
[2021-10-17 12:13] VITALS: BP 112/60
--- NOTE | 2021-10-17 12:56 | Progress Note - Urology ---
Progress Note-Urology Progress Notes/Assess & Plan Progress/Assessment & Plan DOING WELL. VOIDED AND EMPTYING WELL. DRY. HAPPY Final Diagnosis CYSTOCELE AND INCONTINENCE BRITTANY NIELSEN MD Oct 17, 2021 12:56
--- NOTE | 2021-10-17 12:59 | Discharge Inst-Urology ---
Discharge Inst-Urology Reconcile Patient Problems Problems Reviewed?: Yes Final Diagnosis CYSTOCELE AND INCONTINENCE Patient Instructions/Follow Up Plan/Assessment/Instructions Please make appointment to been seen in office in 2 weeks. REST till then Please call Rx for Bactroban per protocol and Cipro 250 BID for 5 days Showers, no bath Keep bowels soft and moving Increase oral fluids for 48 hours and then as needed. Diet as tolerated. If questions or concerns contact your physician Or seek help at emergency department. BRITTANY NIELSEN MD Oct 17, 2021 12:59
== END 2021-10-17 13:45 | disposition home or self-care (01) ==
LOC: SDC 06:23 → EDSTATUS 09:00 → WS 10:48 → SDC 10-17 13:45
PROVIDERS: ATTEND Urology
DX: N39.3 Stress incontinence (female) (male) (principal)
CPT/HCPCS: 57240; 57288; 82947 ×2; 87081; 94664; C1771